=== PATIENT | female | born 1970 | race Caucasian/White ===

== ENCOUNTER → 2017-11-11 | Outpatient (REF) ==
[2017-11-11 18:39] LABS: RUBELLA IgG QUALITATIVE IMMUNE (IMMUNE)
[2017-11-13 08:06] LABS: RUBEOLA IgG ANTIBODY 95.8 AU/mL (Immune >29.9)
== END ==
LOC: M LAB 15:44
DX: Z00.00 Encounter for general adult medical examination without abnormal findings (principal)

== ENCOUNTER → 2019-10-20 | Outpatient (REF) | payer OTHER, SELFPAY ==
[2020-01-05 10:03] LABS: GLUCOSE, FASTING SEE SEPARATE REPORT
== END ==
LOC: M LABWUC 14:48
PROVIDERS: ATTEND Physician Assistant
DX: I10 Essential (primary) hypertension (principal)

== ENCOUNTER 2020-08-20 19:09 | Observation (INO) | payer MEDICAID, SELFPAY ==
[~2020-08-20] VITALS: Ht 167.6 cm; Wt 82.9 kg
[2020-08-20] MEDS ORDERED: NS 1,000 ML IV SCH (19:50)
[2020-08-20] MEDS ORDERED: MORPHINE 4 MG/ML 1ML VIAL/SYRINGE (J2270) IV ONE ×2 (19:55→21:15)
[2020-08-20] MEDS ORDERED: LABETALOL 100MG/20ML VIAL IV STA ×2 (20:23→23:05)
[2020-08-20 20:34] LABS: BASO % 0.4 % (0.0-1.0); EOS % 0.4 % (0.0-3.0); HEMATOCRIT 45.1 % (36.0-47.0); HEMOGLOBIN 14.7 g/dl (12.0-15.5); LYMPH # 2.5 10^3/uL (1.5-5.0); LYMPH % 22.9 % (24.0-44.0); MEAN CORPUSCULAR HEMOGLOBIN 29.2 pg (27.0-33.0); MEAN CORPUSCULAR HGB CONC 32.6 g/dl (32.0-36.5); MEAN CORPUSCULAR VOLUME 89.7 fl (80.0-96.0); MONO # 0.7 10^3/uL (0.0-0.8); MONO % 6.5 % (2.0-8.0); NEUTROPHILS # 7.7 10^3/uL (1.5-8.5); NEUTROPHILS % 69.3 % (36.0-66.0); PLATELET COUNT, AUTOMATED 325 10^3/uL (150-450); RED BLOOD COUNT 5.03 10^6/uL (4.00-5.40); WHITE BLOOD COUNT 11.1 10^3/uL (4.0-10.0)
[2020-08-20 21:03] LABS: ALBUMIN 3.7 GM/DL (3.2-5.2); ALT/SGPT 19 U/L (12-78); BILIRUBIN,DIRECT < 0.1 MG/DL (0.0-0.2); BILIRUBIN,TOTAL 0.3 MG/DL (0.2-1.0); BLOOD UREA NITROGEN 8 MG/DL (7-18); CALCIUM LEVEL 8.9 MG/DL (8.5-10.1); CARBON DIOXIDE LEVEL 25 MEQ/L (21-32); CHLORIDE LEVEL 105 MEQ/L (98-107); CK-MB VALUE MASS < 1.0 NG/ML (<3.6); CPK CREATINE PHOSPHOKINASE 94 U/L (26-192); CREATININE FOR GFR 0.73 MG/DL (0.55-1.30); GLOMERULAR FILTRATION RATE > 60.0 (>58); GLUCOSE, FASTING 104 MG/DL (70-100); LIPASE 126 U/L (73-393); MB/CK RELATIVE INDEX 1.06 (< OR =4); POTASSIUM SERUM 3.5 MEQ/L (3.5-5.1); SODIUM LEVEL 138 MEQ/L (136-145); TOTAL PROTEIN 7.7 GM/DL (6.4-8.2); TROPONIN I < 0.02 NG/ML (< 0.10)
[2020-08-20] MEDS ORDERED: ISOVUE-370 76% 100ML VIAL As Ordered ONE (21:19)
[2020-08-20] MEDS ORDERED: ONDANSETRON 4MG/2ML VIAL IV ONE (22:10)
--- NOTE | 2020-08-20 22:45 | REPVR ---
PROCEDURE INFORMATION: Exam: CT Abdomen And Pelvis With Contrast Exam date and time: 08/20/2020 9:44 PM Age: 49 years old Clinical indication: Abdominal pain; Right flank pain TECHNIQUE: Imaging protocol: Computed tomography of the abdomen and pelvis with contrast. Radiation optimization: All CT scans at this facility use at least one of these dose optimization techniques: automated exposure control; mA and/or kV adjustment per patient size (includes targeted exams where dose is matched to clinical indication); or iterative reconstruction. Contrast material: ISOVUE 370; Contrast volume: 100 ml; Contrast route: INTRAVENOUS (IV); COMPARISON: No relevant prior studies available. FINDINGS: Lungs: The imaged portions of the lung bases are clear. The lungs were not fully imaged. Heart: No cardiomegaly or pericardial effusion. Liver: The attenuation of the liver is more than 40 Hounsfield units lower in attenuation compared to the spleen, which is compatible with fatty liver infiltration. No liver lesion. The contour of the liver is smooth. No hepatomegaly. Gallbladder and bile ducts: No calcified gallstones are noted. No gallbladder wall thickening, pericholecystic fluid, or pericholecystic inflammatory changes are identified. No dilation of the bile ducts is noted. No calcified stones are seen in the common bile duct. Pancreas: Normal. No dilation of the main pancreatic duct is noted. Spleen: Normal. No splenomegaly is noted. Adrenal glands: Normal. No adrenal mass is noted. Kidneys and ureters: The kidneys are normal in appearance. No renal lesion is noted. No stones are noted in the kidneys or ureters. There is no hydronephrosis or hydroureter. There are no wedge-shaped areas of low attenuation in the kidneys to suggest pyelonephritis. There is no renal abscess or perinephric fluid collection. Stomach and bowel: There is thickening of the wall of the stomach, which may be secondary to its decompressed state versus gastritis. The small bowel is unremarkable. There is severe sigmoid diverticulosis without evidence for diverticulitis. There is no evidence for a bowel obstruction, colitis, pneumatosis intestinalis, intussusception, volvulus, or perforated viscus. Appendix: Normal. There is no evidence for appendicitis. Intraperitoneal space: Unremarkable. No fluid collection. No free air. Retroperitoneal space: No fluid collection. No mass. Vasculature: The abdominal aorta is patent, normal in caliber, and there is no dissection. The iliac arteries, common femoral arteries, renal arteries, celiac artery, superior mesenteric artery, and inferior mesenteric artery are patent. There are minimal atherosclerotic calcifications. Lymph nodes: No enlarged lymph nodes. Urinary bladder: The partially distended urinary bladder is unremarkable. No stones or masses are seen in the bladder. Reproductive: There is an 8 mm submucosal fibroid in the right anterior superior segment of the uterus. There is a 3.8 cm intramural fibroid in the fundus of uterus. There is a 1.9 cm right ovarian cyst with simple characteristics. The left ovary is normal in appearance. Incidental note is made of a tampon in the vagina. Bones/joints: There is no fracture or dislocation. No suspicious osteolytic or osteoblastic lesion. There are degenerative changes involving the lumbar spine. Soft tissues: There is a tiny fat containing umbilical hernia. IMPRESSION: 1. No stones in the kidneys, ureters, or urinary bladder. No hydronephrosis or hydroureter. No CT evidence for pyelonephritis. 2. Normal appendix. 3. Thickening of the wall of the stomach, which may be secondary to its decompressed state versus gastritis. 4. Severe sigmoid diverticulosis without evidence for diverticulitis. 5. Fatty liver. 6. 1.9 cm right ovarian cyst with simple characteristics. No further imaging is recommended. (Reference: Tam) 7. Uterine fibroids. 8. Tiny fat containing umbilical hernia. REFERENCES: Tam et al. Management of Incidental Adnexal Findings on CT and MRI: A White Paper of the ACR Incidental Findings Committee, J Am Amrla Radiol. 2019;17(2):248-254. Electronically signed by: Everett Nur On 08/20/2020 22:44:52 PM
[2020-08-20] MEDS ORDERED: IBUP200T45 PO (23:12)
[2020-08-20] MEDS ORDERED: ACET-683 PO (23:12)
[2020-08-20] MEDS ORDERED: BENA25CA4 PO (23:12)
--- NOTE | 2020-08-20 23:34 | HPEPDOC ---
[facility] Medical History & Physical Date of Admission Aug 20, 2020 Date of Service: Aug 20, 2020 History and Physical CHIEF COMPLAINT: Right flank pain HISTORY OF PRESENT ILLNESS: 49-year-old female history of hypertension and anxiety who presents with right flank pain. Patient tells me that pain started 2 days ago and has been on and off but worsened over the past 24 hours which prompted her to come to the hospital. She thinks she might have had kidney stones which she passed as it feels the same as previous time she had kidney stones although this does not radiate down her groin as it has in the past. She denies fevers or chills denies dysuria. Denies pain on the left side. Tells me that after receiving morphine in the emergency department she feels a lot better and her pain is better. Endorses feeling anxious. She does tell me that the pain started shortly after she was bent over and cleaning the floor 2 days ago and is on the pain started and so she doesn't know if she might of pulled a muscle. Patient was noted to have hypertensive urgency in the emergency department and received 20 mg of IV labetalol with little improvement in her blood pressure and received a second dose of IV labetalol. I talked to the patient at this and he could be a combination of pain as well as medication noncompliance. She has a history of hypertension however due to insurance problems she has been unable to follow-up with the primary care physician to get prescriptions for her lisinopril and thus has not been taking her medications throughout most of last year. BP in the ED was reported to be as high as 247/124 PAST MEDICAL/SURGICAL HISTORY: Hypertension Anxiety History of kidney stone 2 C-sections 2 back surgeries SOCIAL HISTORY: Versus drinking occult social Endorses smoking 1 pack per day tobacco Denies illicit drug use FAMILY HISTORY: Reviewed and none contributory to this admission ALLERGIES: Please see below. REVIEW OF SYSTEMS: 10 point review of systems complete all negative otherwise stated in HPI HOME MEDICATIONS: Please see below. PHYSICAL EXAMINATION: Constitutional: Awake and alert, in mild apparent distress, anxious appearing and crying ENT: Sclera are clear. Mucosa is moist. Respiratory: Lungs CTA bilaterally. No respiratory distress Cardiovascular: RRR S1 and S2 are normal Gastrointestinal: Abdomen is soft, non distended, non tender, BS present. Musculoskeletal: No lower extremity edema. Right flank tender at a single spot overlying the iliopsoas muscle area. no CVA tenderness. Neurologic: No focal neurological deficit. Mental Status: A&O x3, normal affect Skin: No visible rashes LABORATORY DATA: See below. IMAGING: See chart MICROBIOLOGY: Please see below. ASSESSMENT/PLAN 49-year-old female history of hypertension and anxiety who presents with right flank pain of unknown etiology at this point found to have hypertensive urgency admitted for further medical workup and management. # HTN urgency: likely combination of medication none compliance and pain. Pain control. Started on Lisinopril & HCTZ. IV Hydralazine PRN BNP>160. Monitor and titrate meds. # Right flank pain: etiology known. CT negative for kidney stone. She might have passed a stone already which would explain the blood seen in her urine. Could be MSK, says pain started after cleaning the floor and bending. Pain is over the iliopsoas muscle area. Could be referred pain from ovarian cyst on right side seen on CT. For now monitor. Pain control which could be contributing to her HTN. Flexeril. # Hematuria: reported by patient and seen on UA. Could be from passing a kidney stone although given that she's a smoker that increases her risk of bladder cancer and I would recommend consultation by the morning team with urology prior to discharge to get recommendations on weather she will need to see them in the clinic for cystoscopy # Obesity: BMI 29. Complicates care. Fu A1C, lipid panel. # Smoker: nicotine patch. counseled to quit. # Anxiety: xanax as needed for anxiety # DVT prophylaxis: Lovenox. A [facility] Vital Signs Vital Signs Date Time Temp Pulse Resp B/P (MAP) Pulse Ox O2 Delivery O2 Flow Rate FiO2 08/20/20 23:15 64 203/100 08/20/20 22:24 18 96 Room Air 08/20/20 21:35 97.6 Laboratory Data Labs 24H Laboratory Tests 2 08/20/20 20:19: Immature Granulocyte % (Auto) 0.5, Neutrophils (%) (Auto) 69.3H, Lymphocytes (%) (Auto) 22.9L, Monocytes (%) (Auto) 6.5, Eosinophils (%) (Auto) 0.4, Basophils (%) (Auto) 0.4, Neutrophils # (Auto) 7.7, Lymphocytes # (Auto) 2.5, Monocytes # (Auto) 0.7, Eosinophils # (Auto) 0.0, Basophils # (Auto) 0.0, Nucleated Red Blood Cells % (auto) 0.0, Anion Gap 8, Glomerular Filtration Rate > 60.0, Calcium Level 8.9, Total Bilirubin 0.3, Direct Bilirubin < 0.1, Aspartate Amino Transf (AST/SGOT) 12, Alanine Aminotransferase (ALT/SGPT) 19, Alkaline Phosphatase 66, Total Creatine Kinase 94, Creatine Kinase MB < 1.0, Creatine Kinase MB Relative Index 1.06, Troponin I < 0.02, Total Protein 7.7, Albumin 3.7, Albumin/Globulin Ratio 0.9L, Lipase 126 08/20/20 20:59: Urine Color YELLOW, Urine Appearance HAZY, Urine pH 7.0, Urine Specific [place] 1.011, Urine Protein NEGATIVE, Urine Glucose (UA) NEGATIVE, Urine Ketones NEGATIVE, Urine Blood 1+H, Urine Nitrite NEGATIVE, Urine Bilirubin NEGATIVE, Urine Urobilinogen 0.2, Urine Leukocyte Esterase NEGATIVE, Urine WBC (Auto) 0, Urine RBC (Auto) 11H, Urine Hyaline Casts (Auto) 0, Urine Bacteria (Auto) NEGATIVE, Urine Squamous Epithelial Cells 0, Urine Amorphous Sediment SMALLH, Urine Mucus (Auto) SMALL, Urine Sperm (Auto) 08/20/20 23:19: CBC/BMP Laboratory Tests 08/20/20 20:19 Home Medications Scheduled PRN Acetaminophen (Acetaminophen) 500 Mg Tablet, 1,000 MG PO Q6H PRN for PAIN / FEVER Diphenhydramine HCl (Benadryl) 25 Mg Capsule, 25 MG PO QHS PRN for SLEEP Ibuprofen (Ibu-200) 200 Mg Tablet, 600 MG PO TID PRN for PAIN / FEVER Allergies Coded Allergies: No Known Allergies (Unverified , 08/20/20) A-FIB/CHADSVASC A-FIB History Current/History of A-Fib/PAF?: No TIMBO MONTES MD Aug 20, 2020 23:34
[2020-08-21] MEDS ORDERED: hydrALAZINE 20MG/ML 1ML VIAL (J0360 PER 20MG) IV ONE
[2020-08-21 00:02] LABS: RSV AMPLIFICATION NEGATIVE (NEGATIVE)
[2020-08-21] MEDS ORDERED: MORPHINE 2 MG/ML 1ML VIAL (J2270) IV PRN (00:15)
[2020-08-21] MEDS ORDERED: MOM 30ML SUSPENSION UDC PO PRN (00:15)
[2020-08-21] MEDS ORDERED: IBUPROFEN 400MG TAB PO PRN (00:15)
[2020-08-21] MEDS ORDERED: MAALOX 30 ML SUSP *UDC PO PRN (00:15)
[2020-08-21 00:21] LABS: CHOLESTEROL LEVEL 246 MG/DL (<200); HDL CHOLESTEROL 41 MG/DL (>40); LDL CHOLESTEROL 140 MG/DL (<100); NON-HDL-C 205 MG/DL; TRIGLYCERIDES LEVEL 326 MG/DL (<150)
[2020-08-21 01:50] VITALS: BP 198/100
[2020-08-21 04:00] VITALS: BP 133/73
[2020-08-21] MEDS ORDERED: hydrALAZINE 20MG/ML 1ML VIAL (J0360 PER 20MG) IV PRN (04:00)
[2020-08-21 06:53] LABS: HEMATOCRIT 44.2 % (36.0-47.0); HEMOGLOBIN 14.4 g/dl (12.0-15.5); MEAN CORPUSCULAR HEMOGLOBIN 29.1 pg (27.0-33.0); MEAN CORPUSCULAR HGB CONC 32.6 g/dl (32.0-36.5); MEAN CORPUSCULAR VOLUME 89.5 fl (80.0-96.0); PLATELET COUNT, AUTOMATED 325 10^3/uL (150-450); RED BLOOD COUNT 4.94 10^6/uL (4.00-5.40); WHITE BLOOD COUNT 15.2 10^3/uL (4.0-10.0)
[2020-08-21 07:24] LABS: BLOOD UREA NITROGEN 7 MG/DL (7-18); CALCIUM LEVEL 8.6 MG/DL (8.5-10.1); CARBON DIOXIDE LEVEL 24 MEQ/L (21-32); CHLORIDE LEVEL 108 MEQ/L (98-107); CREATININE FOR GFR 0.67 MG/DL (0.55-1.30); GLOMERULAR FILTRATION RATE > 60.0 (>58); GLUCOSE, FASTING 93 MG/DL (70-100); POTASSIUM SERUM 3.7 MEQ/L (3.5-5.1); SODIUM LEVEL 139 MEQ/L (136-145)
[2020-08-21 07:55] VITALS: BP 133/69
[2020-08-21] MEDS: ENOXAPARIN 40MG/0.4ML SYRINGE (J1650 PER 10MG) SC SCH (08:27)
[2020-08-21] MEDS: DOCUSATE SODIUM 100MG CAPSULE PO SCH ×2 (08:28→21:30)
[2020-08-21] MEDS: LIDOCAINE 5% (LIDODERM) PATCH TD SCH (08:28)
[2020-08-21] MEDS ORDERED: hydroCHLOROthiazide 12.5 MG CAPSULE PO SCH (09:00)
[2020-08-21] MEDS ORDERED: ONDANSETRON 4MG/2ML VIAL IV PRN (11:05)
[2020-08-21] MEDS: CYCLOBENZAPRINE 5MG TABLET PO PRN ×2 (11:23→21:30)
[2020-08-21 12:00] VITALS: BP 163/80
[2020-08-21] MEDS ORDERED: hydroCHLOROthiazide 12.5 MG CAPSULE PO ONE ×2 (16:00)
[2020-08-21] MEDS ORDERED: CYCL5TAB PO (17:00)
[2020-08-21] MEDS ORDERED: HYDR-3490 PO (17:00)
[2020-08-21] MEDS ORDERED: LISI20TA33 PO (17:00)
[2020-08-21] MEDS ORDERED: ATOR40TA75 PO (17:18)
[2020-08-21] MEDS ORDERED: ATORVASTATIN 20 MG TAB PO ONE (17:25)
[2020-08-21 17:49] VITALS: BP 152/68
--- NOTE | 2020-08-21 18:22 | REPVR ---
PROCEDURE INFORMATION: Exam: MR Lumbar Spine Without Contrast Exam date and time: 08/21/2020 5:08 PM Age: 49 years old Clinical indication: Other: R flank pain TECHNIQUE: Imaging protocol: Multiplanar magnetic resonance images of the lumbar spine without intravenous contrast. COMPARISON: No relevant prior studies available. FINDINGS: Vertebrae: There is degenerative changes of the vertebral endplates L5-S1. Spinal cord: The conus is normal in size with no evidence of abnormal bright signal intensity in ending at L2. L4-L5: There is a moderate right lateral disc protrusion causing impression on the anterior right side of the thecal sac and extending into the caudal aspect of the right L4 neural foramina. There is only mild right L4 neural foraminal narrowing. L5-S1: There is moderate left paracentral disc protrusion/osteophyte formation causing moderate impression on the anterior left side of the thecal sac. There is also moderate bilateral narrowing of the left L5 neural foramina secondary to disc protrusion and facet hypertrophy. Soft tissues: Unremarkable. IMPRESSION: 1. The L5-S1 level demonstrates moderate left paracentral disc protrusion/osteophyte formation causing moderate impression on the anterior left side of the thecal sac. Moderate bilateral L5 neural foraminal narrowing. 2. The L4-L5 level demonstrates moderate right lateral disc protrusion causing impression on the anterior right side of the thecal sac. Electronically signed by: Sergio Doshi On 08/21/2020 18:22:13 PM
--- NOTE | 2020-08-21 19:08 | REPVR ---
PROCEDURE INFORMATION: Exam: MR Pelvis Without Contrast Exam date and time: 08/21/2020 5:08 PM Age: 49 years old Clinical indication: Other: R flank pain TECHNIQUE: Imaging protocol: Magnetic resonance images of the pelvis without intravenous contrast. COMPARISON: CT ABD/PEL W/IV CONTRAST ONLY 08/20/2020 9:41 PM FINDINGS: Stomach and bowel: There are multiple diverticula of the sigmoid colon but no definite evidence of diverticulitis Intraperitoneal space: There is a very small amount of free fluid in the pelvis. Bladder: Normal urinary bladder. Reproductive: The endometrial cavity appears within the range of normal. There is a 4 cm fibroid along the anterior aspect of the fundus of the uterus. There is a 2 cm cyst of the right ovary probably a functional cyst. Veins: When reviewing the CT scan of the abdomen there is a density at the right pulmonary vein and left atrial junction. This could represent a proteinaceous cyst. I would recommend a CT scan of the chest with contrast for clarification. Bones/joints: The marrow space has a normal signal intensity. Normal appearing right and left hip. There is a small amount of joint fluid right and left hip. The marrow space has a normal signal intensity. IMPRESSION: 1. 4 cm fibroid along the fundus of the uterus. Normal endometrium. 2. 2 cm follicular cyst right ovary. 3. Small amount of free fluid in the pelvis. 4. 2.2 cm structure at the right side of the left atrium. This may be a cyst, however to exclude any possibility of a solid mass suggest CT scan of the chest with contrast. Electronically signed by: Sergio Doshi On 08/21/2020 19:08:00 PM
--- NOTE | 2020-08-21 19:22 | ECGEPIP ---
[facility] - ED Test Date: 2020-08-20 Pat Name: ABRAHAM HURTADO Department: Room: [place] [address] Gender: Female Health Information Tech: MATTHEW : 1970 Requested By: ADRIÁN Holley Order Number: [id number] Reading MD: Hector Villalobos Measurements Intervals [place] Rate: 80 P: 0 ME: 160 QRS: -1 QRSD: 74 T: 6 QT: 384 QTc: 442 Interpretive Statements Normal sinus rhythm Minimal voltage criteria for LVH, may be normal variant ( R in aVL ) Nonspecific ST T wave changes No prior ECG for comparison Electronically Signed on 08-21-2020 19:21:56 EDT by Hector Villalobos
[2020-08-21 20:00] VITALS: BP 187/92
[2020-08-21] MEDS ORDERED: **NOTE PATIENT COMMENT** MISC XX SCH (21:00)
[2020-08-21] MEDS ORDERED: NICOTINE 21MG/24HR 1 EA TRANSDERMAL TD SCH (21:00)
[2020-08-21] MEDS ORDERED: ISOVUE-370 76% 100ML VIAL As Ordered ONE (21:44)
--- NOTE | 2020-08-21 21:56 | IPNPDOC ---
Text Note Date of Service The patient was seen on 08/21/20. NOTE Overnight update: initially was called by nurse that patient wanted to leave AMA. DC was cancelled earlier today pending MRI results. MRI pelvis shows a 2.2 cm structure R side of L atrium and a CT scan chest with contrast was recommended. I discussed the case with Dr Turcios to see if we should get this inpatient vs outpatient. Given this strange finding it was decided its best if patient stays and get the recommended CT. I spoke with the patient and updated her on the plan. MRI pelvis, IMPRESSION: 1. 4 cm fibroid along the fundus of the uterus. Normal endometrium. 2. 2 cm follicular cyst right ovary. 3. Small amount of free fluid in the pelvis. 4. 2.2 cm structure at the right side of the left atrium. This may be a cyst, however to exclude any possibility of a solid mass suggest CT scan of the chest with contrast. VS,Fishbone, I+O VS, Fishbone, I+O Laboratory Tests 08/21/20 06:43 Vital Signs Date Time Temp Pulse Resp B/P (MAP) Pulse Ox O2 Delivery O2 Flow Rate FiO2 08/21/20 20:00 97.3 65 18 187/92 (123) 97 Room Air I&O- Last 24 Hours up to 6 AM 08/21/20 06:00 Intake Total 750 ml Balance 750 ml TIMBO MONTES MD Aug 21, 2020 21:56
--- NOTE | 2020-08-21 22:26 | REPVR ---
PROCEDURE INFORMATION: Exam: CT Chest With Contrast; Diagnostic Exam date and time: 08/21/2020 9:52 PM Age: 49 years old Clinical indication: Abnormal findings; Abnormal radiologic exam of lung or chest; Additional info: Reported artrium mass on mri, CT chest was recommended TECHNIQUE: Imaging protocol: Diagnostic computed tomography of the chest with contrast. 3D rendering (Not supervised by radiologist): MIP and/or 3D reconstructed images were created by the technologist. Radiation optimization: All CT scans at this facility use at least one of these dose optimization techniques: automated exposure control; mA and/or kV adjustment per patient size (includes targeted exams where dose is matched to clinical indication); or iterative reconstruction. Contrast material: ISOVUE 370; Contrast volume: 75 ml; Contrast route: INTRAVENOUS (IV); COMPARISON: No relevant prior studies available. FINDINGS: Lungs: Clear appearing lungs. Pleural spaces: Unremarkable. No pneumothorax. No pleural effusion. Heart: The heart is top-normal in size and there is no pericardial effusion. Aorta: There is opacification of the aorta which appears intact. There is opacification of the pulmonary arteries with no evidence of pulmonary embolus. Veins: There is a 2.2 cm structure abutting the left atrium and surrounding a right enhancing pulmonary vein. This is probably a cyst. As a precautionary measure I would recommend a follow-up CT in 6 months for re-evaluation and to document stability. Lymph nodes: There are small lymph nodes within the mediastinum. IMPRESSION: 1. Clear appearing lungs. 2. 2.2 cm structure at the right side of the left atrium surrounding a right pulmonary vein. This is probably a cystic structure. Recommend follow-up CT in 6 months for re-evaluation and to document stability as a precautionary measure. Electronically signed by: Sergio Doshi On 08/21/2020 22:25:30 PM
[2020-08-22] VITALS: BP 170/85
[2020-08-22 04:00] VITALS: BP 173/85
[2020-08-22 07:33] LABS: BASO % 0.4 % (0.0-1.0); EOS # 0.1 10^3/uL (0.0-0.5); EOS % 0.8 % (0.0-3.0); HEMATOCRIT 43.1 % (36.0-47.0); HEMOGLOBIN 13.9 g/dl (12.0-15.5); LYMPH # 2.7 10^3/uL (1.5-5.0); LYMPH % 32.2 % (24.0-44.0); MEAN CORPUSCULAR HEMOGLOBIN 29.1 pg (27.0-33.0); MEAN CORPUSCULAR HGB CONC 32.3 g/dl (32.0-36.5); MEAN CORPUSCULAR VOLUME 90.2 fl (80.0-96.0); MONO # 0.7 10^3/uL (0.0-0.8); NEUTROPHILS % 58.5 % (36.0-66.0); PLATELET COUNT, AUTOMATED 301 10^3/uL (150-450); RED BLOOD COUNT 4.78 10^6/uL (4.00-5.40); WHITE BLOOD COUNT 8.5 10^3/uL (4.0-10.0)
[2020-08-22 07:56] LABS: BLOOD UREA NITROGEN 10 MG/DL (7-18); CALCIUM LEVEL 9.2 MG/DL (8.5-10.1); CARBON DIOXIDE LEVEL 27 MEQ/L (21-32); CHLORIDE LEVEL 105 MEQ/L (98-107); CREATININE FOR GFR 0.67 MG/DL (0.55-1.30); GLOMERULAR FILTRATION RATE > 60.0 (>58); GLUCOSE, FASTING 83 MG/DL (70-100); MAGNESIUM LEVEL 2.3 MG/DL (1.8-2.4); POTASSIUM SERUM 3.7 MEQ/L (3.5-5.1); SODIUM LEVEL 140 MEQ/L (136-145)
[2020-08-22 08:00] VITALS: BP 159/92
[2020-08-22] MEDS: ENOXAPARIN 40MG/0.4ML SYRINGE (J1650 PER 10MG) SC SCH (08:48)
[2020-08-22] MEDS: LIDOCAINE 5% (LIDODERM) PATCH TD SCH (08:48)
[2020-08-22 08:49] VITALS: BP 159/92
[2020-08-22] MEDS: DOCUSATE SODIUM 100MG CAPSULE PO SCH (08:49)
[2020-08-22] MEDS ORDERED: ATORVASTATIN 20 MG TAB PO SCH (09:00)
--- NOTE | 2020-08-22 09:03 | DS.PDOC ---
Discharge Summary General Date of Admission Aug 20, 2020 at 19:10 Date of Discharge 08/21/2020 Discharge Summary PROCEDURES PERFORMED DURING STAY: [None]. ADMITTING DIAGNOSES / DISCHARGE DIAGNOSES: HTN; s/p Urgency Right flank pain - likely 2/2 musculoskeletal pain, less likely 2/2 Hematuria Obesity Nicotine dependence Anxiety DVT prophylaxis COMPLICATIONS/CHIEF COMPLAINT: Right sided flank pain HISTORY OF PRESENT ILLNESS: Patient is a 49-year-old female with a past medical history of hypertension and anxiety who presented to the emergency room with right flank pain. Patient reported that the pain occurred 2 days ago and has been occurring intermittently. Patient thought that this was kidney stones, however, has not experience this radiating pain to the groin. Patient reports that she has been noncompliant with her medications because of lack of insurance and has been taking her medications intermittently. Patient was admitted to the hospitalist service for further evaluation and treatment. 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 - c/w Flexeril; advised to buy [id number] Salonpas for pain relief Hematuria - Patient reports that she has a family history of fibroids; reports that her m other had a hysterectomy at age 38 - Patient has had some spotting of blood - UA noted - H&H stable - Imaging reveals evidence of fibroids / no evidence of kidney stones - Patient has been advised to follow-up with PCP, Urology and ZONING ENGINEER within the next 7 days Obesity - BMI 29 - Complicating medical care - A1c of 5.0% - Elevated LDL - Will start Atorvastatin Nicotine dependence - Advised smoking cessation - c/w Nicotine patch Anxiety - Currently not on medications DVT prophylaxis - c/w Lovenox DISCHARGE MEDICATIONS: Please see below. ALLERGIES: Please see below. PHYSICAL EXAMINATION ON DISCHARGE: VITAL SIGNS: Please see below. GENERAL: Laying in bed, appears to be comfortable, not in any acute distress, is oriented to person, place and time HEENT: Normocephalic and atraumatic CARDIOVASCULAR EXAMINATION: Regular rate and rhythm RESPIRATORY EXAMINATION: Fair air entry bilaterally without evidence of wheezing, rales or rhonchi ABDOMINAL EXAMINATION: Soft, nondistended, nontender; mild right-sided perivertebral tenderness EXTREMITIES: No evidence of edema Neuro: 5/5 strength at lower extremities; no difficulty with ambulation LABORATORY DATA: Please see below. IMAGING: CT abdomen / pelvis 08/20: 1. No stones in the kidneys, ureters, or urinary bladder. No hydronephrosis or hydroureter. No CT evidence for pyelonephritis. 2. Normal appendix. 3. Thickening of the wall of the stomach, which may be secondary to its decompressed state versus gastritis. 4. Severe sigmoid diverticulosis without evidence for diverticulitis. 5. Fatty liver. 6. 1.9 cm right ovarian cyst with simple characteristics. No further imaging is recommended. (Reference: Tam) 7. Uterine fibroids. 8. Tiny fat containing umbilical hernia. Lumbar spine MRI 08/21: 1. The L5-S1 level demonstrates moderate left paracentral disc protrusion /osteophyte formation causing moderate impression on the anterior left side of the thecal sac. Moderate bilateral L5 neural foraminal narrowing. 2. The L4-L5 level demonstrates moderate right lateral disc protrusion causing impression on the anterior right side of the thecal sac. PROGNOSIS: Fair ACTIVITY: [As tolerated]. DISCHARGE PLAN: Follow-up with primary care provider and ZONING ENGINEER within the next 7 days Remain compliant with treatment plan and medications Return to the ER if you experience any problems DISPOSITION: Home DISCHARGE CONDITION: [Stable]. TIME SPENT ON DISCHARGE: 35 minutes Vital Signs/I&Os Vital Signs Date Time Temp Pulse Resp B/P (MAP) Pulse Ox O2 Delivery O2 Flow Rate FiO2 08/21/20 12:00 97.8 67 18 163/80 (107) 97 Room Air I&O- Last 24 Hours up to 6 AM 08/21/20 06:00 Intake Total 750 ml Balance 750 ml Laboratory Data Labs 24H Laboratory Tests 2 08/20/20 20:19: Immature Granulocyte % (Auto) 0.5, Neutrophils (%) (Auto) 69.3H, Lymphocytes (%) (Auto) 22.9L, Monocytes (%) (Auto) 6.5, Eosinophils (%) (Auto) 0.4, Basophils (%) (Auto) 0.4, Neutrophils # (Auto) 7.7, Lymphocytes # (Auto) 2.5, Monocytes # (Auto) 0.7, Eosinophils # (Auto) 0.0, Basophils # (Auto) 0.0, Nucleated Red Blood Cells % (auto) 0.0, Anion Gap 8, Glomerular Filtration Rate > 60.0, Estimated Mean Plasma Glucose 97, Hemoglobin A1c 5.0, Calcium Level 8.9, Total Bilirubin 0.3, Direct Bilirubin < 0.1, Aspartate Amino Transf (AST/SGOT) 12, Alanine Aminotransferase (ALT/SGPT) 19, Alkaline Phosphatase 66, Total Creatine Kinase 94, Creatine Kinase MB < 1.0, Creatine Kinase MB Relative Index 1.06, Troponin I < 0.02, Total Protein 7.7, Albumin 3.7, Albumin/Globulin Ratio 0.9L, Triglycerides Level 326H, Total Cholesterol 246H, LDL Cholesterol 140H, Non-HDL Cholesterol (LDL + VLDL) 205, Total HDL Cholesterol 41, Cholesterol/HDL Ratio 6.000H, Lipase 126 08/20/20 20:59: Urine Color YELLOW, Urine Appearance HAZY, Urine pH 7.0, Urine Specific [place] 1.011, Urine Protein NEGATIVE, Urine Glucose (UA) NEGATIVE, Urine Ketones NEGA TIVE, Urine Blood 1+H, Urine Nitrite NEGATIVE, Urine Bilirubin NEGATIVE, Urine Urobilinogen 0.2, Urine Leukocyte Esterase NEGATIVE, Urine WBC (Auto) 0, Urine RBC (Auto) 11H, Urine Hyaline Casts (Auto) 0, Urine Bacteria (Auto) NEGATIVE, Urine Squamous Epithelial Cells 0, Urine Amorphous Sediment SMALLH, Urine Mucus (Auto) SMALL, Urine Sperm (Auto) 08/20/20 23:19: Coronavirus (COVID-19)(PCR) NEGATIVE, Influenza Type A (RT-PCR) NEGATIVE, Influenza Type B (RT-PCR) NEGATIVE, Respiratory Syncytial Virus (PCR) NEGATIVE 08/21/20 06:43: Nucleated Red Blood Cells % (auto) 0.0, Anion Gap 7L, Glomerular Filtration Rate > 60.0, Calcium Level 8.6 08/21/20 08:01: Procalcitonin <0.05 08/21/20 08:32: Urine Color YELLOW, Urine Appearance HAZY, Urine pH 6.0, Urine Specific [place] 1.030, Urine Protein 1+H, Urine Glucose (UA) NEGATIVE, Urine Ketones NEGATIVE, Urine Blood 3+H, Urine Nitrite NEGATIVE, Urine Bilirubin NEGATIVE, Urine Urobilinogen 0.2, Urine Leukocyte Esterase NEGATIVE, Urine WBC (Auto) 3, Urine RBC (Auto) 4H, Urine Hyaline Casts (Auto) 0, Urine Bacteria (Auto) 1+H, Urine Squamous Epithelial Cells 3, Urine Mucus (Auto) SMALL, Urine Sperm (Auto) CBC/BMP Laboratory Tests 08/20/20 20:19 08/21/20 06:43 Microbiology Microbiology 08/21/20 Blood Culture, Received Pending 08/21/20 Blood Culture, Received Pending Discharge Medications Scheduled Atorvastatin Calcium (Atorvastatin Calcium) 40 Mg Tablet, 1 TAB PO DAILY Hydrochlorothiazide (Hydrochlorothiazide) 25 Mg Tablet, 25 MG PO DAILY Lisinopril (Lisinopril) 20 Mg Tablet, 20 MG PO DAILY Scheduled PRN Acetaminophen (Acetaminophen) 500 Mg Tablet, 1,000 MG PO Q6H PRN for PAIN / FEVER, (Reported) Cyclobenzaprine HCl (Cyclobenzaprine HCl) 5 Mg Tablet, 5 MG PO Q8H PRN for Right flank muscle pain Diphenhydramine HCl (Benadryl) 25 Mg Capsule, 25 MG PO QHS PRN for SLEEP, (Reported) Ibuprofen (Ibu-200) 200 Mg Tablet, 600 MG PO TID PRN for PAIN / FEVER, (Reported) Allergies Coded Allergies: No Known Allergies (Unverified , 08/20/20) MALENA MARTINEZ MD Aug 21, 2020 17:25
--- NOTE | 2020-08-22 11:20 | DS.PDOC ---
Discharge Summary General Date of Admission Aug 20, 2020 at 19:10 Date of Discharge 08/22/2020 Discharge Summary PROCEDURES PERFORMED DURING STAY: [None]. ADMITTING DIAGNOSES / DISCHARGE DIAGNOSES: HTN; s/p Urgency s/p Right flank pain - likely 2/2 musculoskeletal pain, less likely 2/2 Hematuria 2.2 cm structure at the right side of the left atrium Obesity Nicotine dependence Anxiety DVT prophylaxis COMPLICATIONS/CHIEF COMPLAINT: Right sided flank pain HISTORY OF PRESENT ILLNESS: Patient is a 49-year-old female with a past medical history of hypertension and anxiety who presented to the emergency room with right flank pain. Patient reported that the pain occurred 2 days ago and has been occurring intermittently. Patient thought that this was kidney stones, however, has not experience this radiating pain to the groin. Patient reports that she has been noncompliant with her medications because of lack of insurance and has been taking her medications intermittently. Patient was admitted to the hospitalist service for further evaluation and treatment. HOSPITAL COURSE: HTN; s/p Urgency - Elevated blood pressure is likely multifactorial given pain and noncompliance with medications - BP improved on discharge - c/w HCTZ and Lisinopril s/p Right flank pain - likely 2/2 musculoskeletal pain, less likely 2/2 - Patient has reported right-sided flank pain that has progressed over last couple of days - His morning patient is reported resolution of her pain - Resolution of pain with lidocaine patch - Hemodynamically stable and afebrile - s/p Leukocytosis - UA without any evidence of infection - Imaging noted below - c/w Flexeril; advised to buy [id number] Salonpas for pain relief Hematuria - Patient reports that she has a family history of fibroids; reports that her mother had a hysterectomy at age 37 - Patient has had some spotting of blood; no gross blood in urine - UA noted - H&H has remained stable - Imaging reveals evidence of fibroids / no evidence of kidney stones - Patient has been advised to follow-up with PCP, Urology and NUTRITION ASSISTANT within the next 7 days 2.2 cm structure at the right side of the left atrium - Was originally found on MRI and subsequently confirmed on CT imaging - Findings of imaging were discussed with the patient; stressed the importance of follow-up imaging; patient has verbalized understanding - Will have outpatient follow-up with primary care provider for repeat imaging within 6 months Obesity - BMI 29 - Complicating medical care - A1c of 5.0% - Elevated LDL - c/w Atorvastatin on discharge - Will have outpatient follow-up with primary care provider Nicotine dependence - Advised smoking cessation - c/w Nicotine patch Anxiety - Currently not on medications DVT prophylaxis - c/w Lovenox DISCHARGE MEDICATIONS: Please see below. ALLERGIES: Please see below. PHYSICAL EXAMINATION ON DISCHARGE: VITAL SIGNS: Please see below. GENERAL: Laying in bed, appears to be comfortable, not in any acute distress, is oriented to person, place and time HEENT: Normocephalic and atraumatic CARDIOVASCULAR EXAMINATION: Regular rate and rhythm RESPIRATORY EXAMINATION: Fair air entry bilaterally without evidence of wheezing, rales or rhonchi ABDOMINAL EXAMINATION: Soft, nondistended, nontender; mild right-sided perivertebral tenderness EXTREMITIES: No evidence of edema Neuro: 5/5 strength at lower extremities; no difficulty with ambulation LABORATORY DATA: Please see below. IMAGING: CT abdomen / pelvis 08/20: 1. No stones in the kidneys, ureters, or urinary bladder. No hydronephrosis or hydroureter. No CT evidence for pyelonephritis. 2. Normal appendix. 3. Thickening of the wall of the stomach, which may be secondary to its decompressed state versus gastritis. 4. Severe sigmoid diverticulosis without evidence for diverticulitis. 5. Fatty liver. 6. 1.9 cm right ovarian cyst with simple characteristics. No further imaging is recommended. (Reference: Tam) 7. Uterine fibroids. 8. Tiny fat containing umbilical hernia. Lumbar spine MRI 08/21: 1. The L5-S1 level demonstrates moderate left paracentral disc protrusion/osteophyte formation causing moderate impression on the anterior left side of the thecal sac. Moderate bilateral L5 neural foraminal narrowing. 2. The L4-L5 level demonstrates moderate right lateral disc protrusion causing impression on the anterior right side of the thecal sac. Pelvis MRI 08/21: 1. 4 cm fibroid along the fundus of the uterus. Normal endometrium. 2. 2 cm follicular cyst right ovary. 3. Small amount of free fluid in the pelvis. 4. 2.2 cm structure at the right side of the left atrium. This may be a cyst, however to exclude any possibility of a solid mass suggest CT scan of the chest with contrast. CT chest 08/21: 1. Clear appearing lungs. 2. 2.2 cm structure at the right side of the left atrium surrounding a right pulmonary vein. This is probably a cystic structure. Recommend follow-up CT in 6 months for re-evaluation and to document stability as a precautionary measure. PROGNOSIS: Fair ACTIVITY: [As tolerated]. DISCHARGE PLAN: Follow-up with primary care provider and NUTRITION ASSISTANT within the next 7 days Remain compliant with treatment plan and medications Return to the ER if you experience any problems DISPOSITION: Home DISCHARGE CONDITION: [Stable]. TIME SPENT ON DISCHARGE: 35 minutes Vital Signs/I&Os Vital Signs Date Time Temp Pulse Resp B/P (MAP) Pulse Ox O2 Delivery O2 Flow Rate FiO2 08/22/20 08:49 159/92 08/22/20 08:00 97.6 79 18 97 Room Air I&O- Last 24 Hours up to 6 AM 08/22/20 06:00 Intake Total 1255 ml Output Total 550 ml Balance 705 ml Laboratory Data Labs 24H Laboratory Tests 2 08/22/20 07:16: Immature Granulocyte % (Auto) 0.1, Neutrophils (%) (Auto) 58.5, Lymphocytes (%) (Auto) 32.2, Monocytes (%) (Auto) 8.0, Eosinophils (%) (Auto) 0.8, Basophils (%) (Auto) 0.4, Neutrophils # (Auto) 5.0, Lymphocytes # (Auto) 2.7, Monocytes # (Auto) 0.7, Eosinophils # (Auto) 0.1, Basophils # (Auto) 0.0, Nucleated Red Blood Cells % (auto) 0.0, Anion Gap 8, Glomerular Filtration Rate > 60.0, Calcium Level 9.2, Magnesium Level 2.3 CBC/BMP Laboratory Tests 08/22/20 07:16 Microbiology Microbiology 08/21/20 Blood Culture - Preliminary, Resulted No growth after 24 hours . All specim... 08/21/20 Blood Culture - Preliminary, Resulted No growth after 24 hours . All specim... Discharge Medications Scheduled Atorvastatin Calcium (Atorvastatin Calcium) 40 Mg Tablet, 1 TAB PO DAILY Hydrochlorothiazide (Hydrochlorothiazide) 25 Mg Tablet, 25 MG PO DAILY Lisinopril (Lisinopril) 20 Mg Tablet, 20 MG PO DAILY Scheduled PRN Acetaminophen (Acetaminophen) 500 Mg Tablet, 1,000 MG PO Q6H PRN for PAIN / FEVER, (Reported) Cyclobenzaprine HCl (Cyclobenzaprine HCl) 5 Mg Tablet, 5 MG PO Q8H PRN for Right flank muscle pain Diphenhydramine HCl (Benadryl) 25 Mg Capsule, 25 MG PO QHS PRN for SLEEP, (Reported) Ibuprofen (Ibu-200) 200 Mg Tablet, 600 MG PO TID PRN for PAIN / FEVER, (Reported) Allergies Coded Allergies: No Known Allergies (Unverified , 08/20/20) MALENA MARTINEZ MD Aug 22, 2020 11:19
[2020-08-22 12:00] VITALS: BP 129/82
== END 2020-08-22 16:05 | disposition home or self-care (01) ==
LOC: M ED 19:09 → M ED INP 19:10 → ENRESERV 08-21 00:50 → M PCU 08-21 01:31
PROVIDERS: ADMIT Family Medicine; ATTEND Family Medicine
DX: I16.0 Hypertensive urgency (principal); R10.31 Right lower quadrant pain; R31.9 Hematuria, unspecified; R93.89 Abnormal findings on diagnostic imaging of other specified body structures; E66.9 Obesity, unspecified; Z68.29 Body mass index [BMI] 29.0-29.9, adult; F41.9 Anxiety disorder, unspecified; D72.829 Elevated white blood cell count, unspecified; D25.9 Leiomyoma of uterus, unspecified; N83.201 Unspecified ovarian cyst, right side; F17.210 Nicotine dependence, cigarettes, uncomplicated; Z91.120 Patient's intentional underdosing of medication regimen due to financial hardship; Z87.442 Personal history of urinary calculi
CPT/HCPCS: 36415; 71260; 72148; 72195; 74177; 80048; 80061; 80076; 81001; 82550; 82553; 83036; 83690; 83735; 84145; 85025; 85027; 87040; 87631; 93005; 93041; 96372; 96374; 96375; 96376; 99285; J0360; J1650; J2270; J2405; Q9967